=== PATIENT | male | born 1930 | race Caucasian/White ===

== ENCOUNTER 2019-05-24 13:21 | Observation (INO) ==
[2019-05-24 13:58] LABS: Basophils # 0.1 K/mcL (0.0-0.2); Basophils % 0.8 %; Eosinophils # 0.3 K/mcL (0.0-0.6); Eosinophils % 3.1 %; Hematocrit 38.7 % (37.5-50.1); Hemoglobin 12.9 g/dL (12.9-16.9); Immature Granulocytes % 0.3 % (0-4); Lymphocytes # 1.4 K/mcL (0.6-4.6); Lymphocytes % 16.3 %; Mean Corpuscular HGB Conc 33.3 g/dL (31.6-35.5); Mean Corpuscular Hemoglobin 33.6 pg (28.0-33.3); Mean Corpuscular Volume 100.8 fL (83.0-100.0); Monocytes # 0.7 K/mcL (0.0-1.3); Monocytes % 7.7 %; Neutrophils # 6.2 K/mcL (1.6-8.9); Platelet Count 274 K/mcL (140-400); Red Blood Count 3.84 M/mcL (4.19-5.50); Red Cell Distribution Width 13.4 % (11.5-14.5); Segmented Neutrophils % 71.8 %; White Blood Count 8.7 K/mcL (4.3-11.1)
[2019-05-24 14:04] LABS: INR 1.5; Prothrombin Time 16.7 Seconds (9.4-12.1)
[2019-05-24 14:06] LABS: Activated Partial Thrombo Time 41.9 Seconds (26.0-36.0)
[2019-05-24 14:27] LABS: BUN/Creatinine Ratio 19 (6-26); Blood Urea Nitrogen 34 mg/dL (8-23); Calcium 9.8 mg/dL (8.6-10.3); Carbon Dioxide 25 mEq/L (23-29); Chloride 104 mEq/L (98-107); Glucose 113 mg/dL (70-105); Magnesium 1.9 mg/dL (1.6-2.6); Osmolality,Calculated 302 (280-300); Potassium 4.6 mEq/L (3.5-5.1); Sodium 142 mEq/L (136-145); Troponin I < 0.03 ng/mL (< 0.04); eGFR For African Americans 44 (> 60); eGFR For Non-African Americans 36 (> 60)
[2019-05-24] MEDS ORDERED: 0.9 % Sodium Chloride 1,000 ML IVC STA (14:42)
[2019-05-24] MEDS ORDERED: Metoprolol XL (24 HR) Succ 25 MG TAB.ER.24H PO SCH (15:57)
[2019-05-24] MEDS ORDERED: Naloxone 0.4 MG/ML INJ IVP PRN (16:43)
[2019-05-24] MEDS ORDERED: Ondansetron 4 MG/2 ML VIAL IVP PRN (16:43)
[2019-05-25] MEDS ORDERED: Metoprolol XL (24 HR) Succ 25 MG TAB.ER.24H PO SCH (09:00)
[2019-05-25 11:53] VITALS: BP 139/86
[2019-05-25] MEDS ORDERED: Apixaban 5 MG TABLET PO SCH (12:15)
[2019-05-25 13:04] LABS: Calcium 9.3 mg/dL (8.6-10.3); Potassium 4.5 mEq/L (3.5-5.1)
== END 2019-05-25 16:10 | disposition home or self-care (01) ==
LOC: EMEROOARM 13:21 → 3BNU 13:21 → SUATTDRO 16:39 → 3BNU 18:25
PROVIDERS: ADMIT Internal Medicine; ATTEND Internal Medicine

== ENCOUNTER 2021-08-11 09:11 | Inpatient (IN) ==
[2021-08-11] MEDS ORDERED: 0.9 % Sodium Chloride 500 ML IVC ONE (09:47)
[2021-08-11 10:20] LABS: Basophils % 0.2 %; Hematocrit 32.3 % (37.5-50.1); Hemoglobin 10.4 g/dL (12.9-16.9); Immature Granulocytes % 0.3 % (0-4); Lymphocytes # 1.2 K/mcL (0.6-4.6); Mean Corpuscular HGB Conc 32.2 g/dL (31.6-35.5); Mean Corpuscular Hemoglobin 35.3 pg (28.0-33.3); Mean Corpuscular Volume 109.5 fL (83.0-100.0); Mean Platelet Volume 11.9 fL (9.4-12.4); Monocytes # 0.3 K/mcL (0.0-1.3); Monocytes % 3.3 %; Neutrophils # 7.5 K/mcL (1.6-8.9); Platelet Count 272 K/mcL (140-400); Red Blood Count 2.95 M/mcL (4.19-5.50); Red Cell Distribution Width 14.4 % (11.5-14.5); Segmented Neutrophils % 83.2 %
[2021-08-11 10:28] LABS: Activated Partial Thrombo Time 34.8 Seconds (26.0-36.0)
[2021-08-11 10:29] LABS: INR 1.1; Prothrombin Time 12.8 Seconds (9.4-12.1)
[2021-08-11 10:31] LABS: Albumin/Globulin Ratio 0.6 (1.1-2.2); Bilirubin,Total 2.7 mg/dL (0.3-1.0); Calcium 9.3 mg/dL (8.6-10.3); Globulin 4.9 g/dL (2.4-3.5); Potassium 5.6 mEq/L (3.5-5.1); Total Protein 7.9 g/dL (6.4-8.9); Troponin I 0.03 ng/mL (< 0.04)
[2021-08-11] MEDS ORDERED: Morphine Sulfate 2 MG/ML SYRINGE IVP ONE ×2 (10:46→14:18)
[2021-08-11 13:33] LABS: Bilirubin,Urine Negative (Negative); Blood,Urine Negative (Negative); Clarity,Urine Clear (Clear); Color,Urine Yellow (Yellow); Glucose,Urine (UA) Normal (Normal); Ketones,Urine Negative (Negative); Leukocyte Esterase,Urine Negative (Negative); Nitrite,Urine Negative (Negative); PH,Urine 5.5 pH Units (5.0-8.0); Protein,Urine Trace mg/dL (Neg-Trace); Urobilinogen,Urine Normal (Normal)
[2021-08-11] MEDS ORDERED: Mag Hydrox/Al Hydrox/Simeth 30 ML UDC PO PRN (15:28)
[2021-08-11] MEDS ORDERED: Ondansetron 4 MG/2 ML VIAL IVP PRN (15:28)
[2021-08-11] MEDS ORDERED: Acetaminophen 325 MG TABLET PO PRN (15:28)
[2021-08-11] MEDS ORDERED: Naloxone 0.4 MG/ML INJ IVP PRN (15:28)
[2021-08-11 16:18] LABS: Bilirubin,Direct 1.4 mg/dL (0.0-0.2); Bilirubin,Indirect 1.3 mg/dL (0.0-1.0)
[2021-08-11] MEDS: *HR* OxyCODONE Immed Rel 5 MG TABLET PO PRN (18:24)
[2021-08-11] MEDS: Melatonin 3 MG TABLET PO PRN (22:09)
[2021-08-12 00:57] LABS: Basophils # 0.1 K/mcL (0.0-0.2); Basophils % 0.5 %; Eosinophils # 0.1 K/mcL (0.0-0.6); Eosinophils % 1.2 %; Immature Granulocytes % 0.4 % (0-4); Lymphocytes # 2.1 K/mcL (0.6-4.6); Lymphocytes % 21.9 %; Mean Corpuscular HGB Conc 32.6 g/dL (31.6-35.5); Mean Corpuscular Hemoglobin 35.6 pg (28.0-33.3); Mean Corpuscular Volume 109.3 fL (83.0-100.0); Mean Platelet Volume 11.3 fL (9.4-12.4); Monocytes # 0.9 K/mcL (0.0-1.3); Monocytes % 9.1 %; Neutrophils # 6.4 K/mcL (1.6-8.9); Platelet Count 254 K/mcL (140-400); Red Blood Count 2.47 M/mcL (4.19-5.50); Red Cell Distribution Width 14.4 % (11.5-14.5); Segmented Neutrophils % 66.9 %; White Blood Count 9.6 K/mcL (4.3-11.1)
[2021-08-12 01:00] LABS: Hemoglobin 8.8 g/dL (12.9-16.9)
[2021-08-12] MEDS: *HR* OxyCODONE Immed Rel 5 MG TABLET PO PRN ×2 (05:56→17:17)
[2021-08-12 09:32] LABS: Calcium 8.5 mg/dL (8.6-10.3)
[2021-08-12] MEDS ORDERED: Hyoscyamine SL 0.125 MG TAB.SUBL SL PRN (19:18)
[2021-08-12] MEDS ORDERED: haloperidoL 1 MG TABLET PO PRN (19:24)
[2021-08-12] MEDS: clonazePAM 1 MG TABLET PO SCH (22:11)
[2021-08-12] MEDS: Melatonin 3 MG TABLET PO PRN (22:11)
[2021-08-12] MEDS: hydrOXYzine pamoate 25 MG CAPSULE PO SCH (22:11)
[2021-08-13] MEDS: *HR* OxyCODONE Immed Rel 5 MG TABLET PO PRN ×3 (06:18→18:15)
[2021-08-13] MEDS: Cholecalciferol (D-3) 1,000 UNIT (25MCG) TABLET PO SCH (08:03)
[2021-08-13 14:43] LABS: Hematocrit 28.2 % (37.5-50.1); Hemoglobin 9.3 g/dL (12.9-16.9); Mean Corpuscular Hemoglobin 35.5 pg (28.0-33.3); Mean Corpuscular Volume 107.6 fL (83.0-100.0); Mean Platelet Volume 11.2 fL (9.4-12.4); Platelet Count 257 K/mcL (140-400); Red Blood Count 2.62 M/mcL (4.19-5.50); Red Cell Distribution Width 14.5 % (11.5-14.5); White Blood Count 9.3 K/mcL (4.3-11.1)
[2021-08-13 15:00] LABS: Calcium 8.3 mg/dL (8.6-10.3)
[2021-08-13] MEDS: hydrOXYzine pamoate 25 MG CAPSULE PO SCH (21:00)
[2021-08-13] MEDS: Melatonin 3 MG TABLET PO PRN (21:00)
[2021-08-13] MEDS: clonazePAM 1 MG TABLET PO SCH (21:00)
[2021-08-14] MEDS: *HR* OxyCODONE Immed Rel 5 MG TABLET PO PRN ×3 (04:15→17:14)
[2021-08-14 06:06] LABS: Hematocrit 27.8 % (37.5-50.1); Hemoglobin 9.4 g/dL (12.9-16.9); Mean Corpuscular HGB Conc 33.8 g/dL (31.6-35.5); Mean Corpuscular Volume 106.5 fL (83.0-100.0); Mean Platelet Volume 11.1 fL (9.4-12.4); Platelet Count 222 K/mcL (140-400); Red Blood Count 2.61 M/mcL (4.19-5.50); Red Cell Distribution Width 14.5 % (11.5-14.5); White Blood Count 8.4 K/mcL (4.3-11.1)
[2021-08-14 06:27] LABS: Calcium 8.1 mg/dL (8.6-10.3); Potassium 4.6 mEq/L (3.5-5.1)
[2021-08-14] MEDS: Cholecalciferol (D-3) 1,000 UNIT (25MCG) TABLET PO SCH (09:01)
[2021-08-14] MEDS: clonazePAM 1 MG TABLET PO SCH (19:43)
[2021-08-14] MEDS: hydrOXYzine pamoate 25 MG CAPSULE PO SCH (19:43)
[2021-08-15] MEDS: Cholecalciferol (D-3) 1,000 UNIT (25MCG) TABLET PO SCH (08:52)
[2021-08-15] MEDS: *HR* OxyCODONE Immed Rel 5 MG TABLET PO PRN ×3 (08:52→21:47)
[2021-08-15] MEDS: *HR* LORazepam 0.5 MG TABLET PO PRN (15:03)
[2021-08-15] MEDS: hydrOXYzine pamoate 25 MG CAPSULE PO SCH (21:47)
[2021-08-15] MEDS: clonazePAM 1 MG TABLET PO SCH (21:48)
[2021-08-16] MEDS: *HR* OxyCODONE Immed Rel 5 MG TABLET PO PRN ×3 (06:14→20:41)
[2021-08-16] MEDS: Cholecalciferol (D-3) 1,000 UNIT (25MCG) TABLET PO SCH (07:58)
[2021-08-16] MEDS: *HR* LORazepam 0.5 MG TABLET PO PRN ×2 (10:48→14:32)
[2021-08-16] MEDS: clonazePAM 1 MG TABLET PO SCH (20:42)
[2021-08-16] MEDS: hydrOXYzine pamoate 25 MG CAPSULE PO SCH (20:42)
[2021-08-17] MEDS: *HR* OxyCODONE Immed Rel 5 MG TABLET PO PRN ×2 (05:32→14:01)
[2021-08-17] MEDS: Cholecalciferol (D-3) 1,000 UNIT (25MCG) TABLET PO SCH (07:57)
[2021-08-17] MEDS: *HR* LORazepam 0.5 MG TABLET PO PRN (17:29)
[2021-08-17] MEDS: clonazePAM 1 MG TABLET PO SCH (21:59)
[2021-08-17] MEDS: hydrOXYzine pamoate 25 MG CAPSULE PO SCH (22:00)
[2021-08-18 02:56] VITALS: O2SAT 100
[2021-08-18] MEDS: Cholecalciferol (D-3) 1,000 UNIT (25MCG) TABLET PO SCH (07:51)
[2021-08-18 10:50] VITALS: BP 128/59; PULSE 67; TEMP 97.4
[2021-08-18 12:41] LABS: Adenovirus Not Detected (Not Detect); Bordetella Pertussis Not Detected (Not Detect); Chlamydophila pneumoniae Not Detected (Not Detect); Coronavirus 229E Not Detected (Not Detect); Coronavirus HKU1 Not Detected (Not Detect); Coronavirus NL63 Not Detected (Not Detect); Coronavirus OC43 Not Detected (Not Detect); Human Metapneumovirus Not Detected (Not Detect); Human Rhinovirus/Enterovirus Not Detected (Not Detect); Influenza A Subtype 2009 H1 Not Detected (Not Detect); Influenza B Not Detected (Not Detect); Mycoplasma pneumoniae Not Detected (Not Detect); Parainfluenza Virus 1 Not Detected (Not Detect); Parainfluenza Virus 2 Not Detected (Not Detect); Parainfluenza Virus 3 Not Detected (Not Detect); Parainfluenza Virus 4 Not Detected (Not Detect); Respiratory Syncytial Virus Not Detected (Not Detect); SARS-CoV-2 Not Detected (Not Detect)
== END 2021-08-18 15:52 | DRG 948 ==
LOC: EMEROOARM 09:11 → 2ANU 09:11
PROVIDERS: ADMIT Hospitalist; ATTEND Hospitalist